=== PATIENT | female | born 1995 | race Caucasian/White ===

== ENCOUNTER → 2016-06-25 14:52 | Outpatient (CLI) | payer OTHER ==
[2015-04-18 21:36] VITALS: BMI 42.8
[~2016-06-25 14:52] MED LIST: IBUPROFEN600 MG PO; PERCOCET 5-3251 TAB PO; PRENATAL COMPLE1 TAB PO
== END | disposition home or self-care (01) ==
LOC: D.RAD 14:52
DX: M54.5 Low back pain (principal)

== ENCOUNTER 2017-01-14 19:31 | Emergency (ER) | payer MEDICAID ==
[2015-04-18 21:36] VITALS: BMI 42.8
[2017-01-14 20:07] LABS: BASOPHILS 0.3 % (0-2); EOSINOPHILS 1.4 % (0-7); HEMATOCRIT 40.8 % (36.0-48.0); HEMOGLOBIN 14.2 g/dL (12-16); IMMATURE GRANULOCYTES 0.3 % (0-5); LYMPHOCYTES 27.4 % (15-50); MCH 29.3 pg (26.0-34.0); MCHC 34.8 g/dL (31.0-37.0); MCV 84.1 fL (80.0-100.0); MEAN PLATELET VOLUME 9.4 fL (7.4-10.4); MONOCYTES 7.9 % (2-11); NEUTROPHILS 62.7 % (40-80); RBC 4.85 10x6/uL (4.00-5.40); RDW 13.2 % (11.5-14.5); WBC 11.1 10x3/uL (4.8-10.8)
[2017-01-14 20:08] LABS: PLATELET COUNT 298 10x3/uL (130-400)
[2017-01-14 20:11] LABS: APPEARANCE CLEAR (CLEAR); BILIRUBIN NEGATIVE (NEGATIVE); COLOR YELLOW (YELLOW); GLUCOSE NEGATIVE (NEGATIVE); KETONE NEGATIVE (NEGATIVE); LEUKOCYTE ESTERASE TRACE (NEGATIVE); NITRITE NEGATIVE (NEGATIVE); PROTEIN NEGATIVE (NEGATIVE); UROBILINOGEN NORMAL (NORMAL)
[2017-01-14 20:13] LABS: BACTERIA MODERATE /hpf (NONE SEEN); EPITHELIAL CELLS 0-5 /hpf (0-5); RED CELLS - URINE 0-5 /hpf (0-5); WHITE CELLS - URINE 0-5 /hpf (0-5)
[2017-01-14 20:24] LABS: ALBUMIN 3.4 g/dL (3.4-5.0); ALKALINE PHOSPHATASE 102 U/L (46-116); ALT (SGPT) 31 U/L (10-68); BILIRUBIN - TOTAL 0.12 mg/dL (0.2-1.3); CALC OSMOLALITY 278 mosm/kg (275-300); CALCIUM 8.7 mg/dL (8.5-10.1); CHLORIDE - SERUM 104 mmol/L (98-107); CREATININE - SERUM 0.9 mg/dL (0.6-1.3); GLUCOSE 101 mg/dL (74-106); POTASSIUM - SERUM 3.9 mmol/L (3.5-5.1); PROTEIN - SERUM 7.3 g/dL (6.4-8.2); SODIUM 140 mmol/L (136-145); UREA NITROGEN 12 mg/dL (7-18); eGFR NON AFRICAN AMERICAN 84 mL/min (90-120)
[2017-01-14 20:30] LABS: HCG - QUANTITATIVE (MATERNAL) 614 mIU/mL
== END 2017-01-14 23:26 | disposition home or self-care (01) ==
LOC: D.ER 19:31
PROVIDERS: Emergency Medicine
DX: O26.899 Other specified pregnancy related conditions, unspecified trimester (principal); Z3A.00 Weeks of gestation of pregnancy not specified; R10.9 Unspecified abdominal pain

== ENCOUNTER 2017-03-05 18:58 | Emergency (ER) | payer MEDICAID ==
[2015-04-18 21:36] VITALS: BMI 42.8
[2017-03-05 19:46] LABS: BASOPHILS 0 % (0-2); EOSINOPHILS 1.1 % (0-7); HEMATOCRIT 38.2 % (36.0-48.0); HEMOGLOBIN 13.1 g/dL (12-16); IMMATURE GRANULOCYTES 0.3 % (0-5); LYMPHOCYTES 25.3 % (15-50); MCH 29.3 pg (26.0-34.0); MCHC 34.3 g/dL (31.0-37.0); MCV 85.5 fL (80.0-100.0); MEAN PLATELET VOLUME 10.4 fL (7.4-10.4); MONOCYTES 6.5 % (2-11); NEUTROPHILS 66.8 % (40-80); RBC 4.47 10x6/uL (4.00-5.40); RDW 13.1 % (11.5-14.5); WBC 9.3 10x3/uL (4.8-10.8)
[2017-03-05 20:03] LABS: PLATELET COUNT 231 10x3/uL (130-400)
[2017-03-05 20:09] LABS: ALBUMIN 2.9 g/dL (3.4-5.0); ALKALINE PHOSPHATASE 83 U/L (46-116); ALT (SGPT) 16 U/L (10-68); CALC OSMOLALITY 277 mosm/kg (275-300); CALCIUM 8.9 mg/dL (8.5-10.1); CARBON DIOXIDE 24.2 mmol/L (21.0-32.0); CHLORIDE - SERUM 105 mmol/L (98-107); CREATININE - SERUM 0.7 mg/dL (0.6-1.3); GLUCOSE 119 mg/dL (74-106); POTASSIUM - SERUM 3.3 mmol/L (3.5-5.1); SODIUM 140 mmol/L (136-145); UREA NITROGEN 6 mg/dL (7-18); eGFR NON AFRICAN AMERICAN > 90 mL/min (90-120)
[2017-03-05 20:10] LABS: APPEARANCE CLEAR (CLEAR); BILIRUBIN NEGATIVE (NEGATIVE); COLOR YELLOW (YELLOW); GLUCOSE 1000 mg/dL (NEGATIVE); KETONE NEGATIVE (NEGATIVE); NITRITE NEGATIVE (NEGATIVE); PROTEIN NEGATIVE (NEGATIVE); UROBILINOGEN NORMAL (NORMAL); WHITE CELLS - URINE 0-5 /hpf (0-5)
[2017-03-05 20:13] LABS: BACTERIA FEW /hpf (NONE SEEN); EPITHELIAL CELLS 0-5 /hpf (0-5)
[2017-03-05 20:22] LABS: BILIRUBIN - TOTAL 0.08 mg/dL (0.2-1.3)
[2017-03-05 20:30] LABS: HCG - QUANTITATIVE (MATERNAL) 103630 mIU/mL
== END 2017-03-05 20:06 | disposition home or self-care (01) ==
LOC: D.ER 18:58
PROVIDERS: Emergency Medicine
DX: O26.891 Other specified pregnancy related conditions, first trimester (principal); Z3A.12 12 weeks gestation of pregnancy; K29.00 Acute gastritis without bleeding; R10.2 Pelvic and perineal pain; O30.001 Twin pregnancy, unspecified number of placenta and unspecified number of amniotic sacs, first trimester

== ENCOUNTER 2017-06-02 22:49 | Outpatient (CLI) | payer MEDICAID ==
[2015-04-18 21:36] VITALS: BMI 42.8
[2017-06-02 23:43] LABS: APPEARANCE HAZY (CLEAR); BILIRUBIN NEGATIVE (NEGATIVE); COLOR DK YELLOW (YELLOW); GLUCOSE 250 mg/dL (NEGATIVE); KETONE NEGATIVE (NEGATIVE); NITRITE NEGATIVE (NEGATIVE); PROTEIN NEGATIVE (NEGATIVE); UROBILINOGEN NORMAL (NORMAL)
[2017-06-03] MEDS ORDERED: LOPRESSOR25 MG (00:49)
[2017-06-03] MEDS ORDERED: antibiotic (00:50)
== END 2017-06-03 06:15 | disposition home or self-care (01) ==
LOC: D.LDO 22:49 → D.LD 22:50 → D.LDO 06-03 06:15
PROVIDERS: Obstetrics & Gynecology
DX: O13.2 Gestational [pregnancy-induced] hypertension without significant proteinuria, second trimester (principal); M54.5 Low back pain; M25.551 Pain in right hip; Z3A.24 24 weeks gestation of pregnancy

== ENCOUNTER 2017-07-16 22:26 | Outpatient (CLI) | payer MEDICAID ==
[2015-04-18 21:36] VITALS: BMI 42.8
[~2017-07-16 22:26] MED LIST changes: +LOPRESSOR25 MG; +antibiotic
== END 2017-07-17 01:20 | disposition other institution (70) ==
LOC: D.LDO 22:26 → D.LD 23:15 → D.LDO 07-17 01:20
DX: O26.893 Other specified pregnancy related conditions, third trimester (principal); Z3A.31 31 weeks gestation of pregnancy; O30.003 Twin pregnancy, unspecified number of placenta and unspecified number of amniotic sacs, third trimester

== ENCOUNTER 2017-08-12 22:21 | Outpatient (CLI) | payer MEDICAID ==
[2015-04-18 21:36] VITALS: BMI 42.8
[2017-08-12 23:34] LABS: HEMATOCRIT 33.6 % (36.0-48.0); HEMOGLOBIN 11.2 g/dL (12-16); MCH 27.4 pg (26.0-34.0); MCHC 33.3 g/dL (31.0-37.0); MCV 82.2 fL (80.0-100.0); RBC 4.09 10x6/uL (4.00-5.40); RDW 18.7 % (11.5-14.5); WBC 7.7 10x3/uL (4.8-10.8)
[2017-08-12 23:40] LABS: CALC OSMOLALITY 279 mosm/kg (275-300); CALCIUM 8.8 mg/dL (8.5-10.1); CARBON DIOXIDE 20.2 mmol/L (21.0-32.0); CHLORIDE - SERUM 106 mmol/L (98-107); CREATININE - SERUM 0.7 mg/dL (0.6-1.3); GLUCOSE 127 mg/dL (74-106); POTASSIUM - SERUM 3.5 mmol/L (3.5-5.1); SODIUM 140 mmol/L (136-145); UREA NITROGEN 9 mg/dL (7-18); URIC ACID 4.3 mg/dL (2.6-7.2); eGFR NON AFRICAN AMERICAN > 90 mL/min (90-120)
[2017-08-12 23:42] LABS: APPEARANCE CLOUDY (CLEAR); BILIRUBIN NEGATIVE (NEGATIVE); COLOR YELLOW (YELLOW); GLUCOSE 250 mg/dL (NEGATIVE); KETONE NEGATIVE (NEGATIVE); NITRITE NEGATIVE (NEGATIVE); PROTEIN 1+ mg/dL (NEGATIVE); SPECIFIC GRAVITY 1.025 (1.005-1.020); UROBILINOGEN NORMAL (NORMAL)
[2017-08-12 23:44] LABS: EPITHELIAL CELLS 0-5 /hpf (0-5); WHITE CELLS - URINE 0-5 /hpf (0-5)
[2017-08-12 23:45] LABS: BACTERIA MODERATE /hpf (NONE SEEN); MUCUS <1+ /lpf (NONE SEEN)
== END 2017-08-13 00:27 | disposition home or self-care (01) ==
LOC: OBSVTIME → D.LDO 22:21 → D.LD 23:30 → OBSVTIME 23:30 → D.LD 23:30 → D.LDO 23:30
PROVIDERS: Obstetrics & Gynecology
DX: O26.893 Other specified pregnancy related conditions, third trimester (principal); Z3A.34 34 weeks gestation of pregnancy

== ENCOUNTER 2018-06-16 18:38 | Emergency (ER) | payer MEDICAID ==
[~2018-06-16] VITALS: Ht 167.6 cm; Wt 99.8 kg
[2018-06-16 18:45] VITALS: Ht 167.6 cm; Wt 99.8 kg
[2018-06-16 19:48] LABS: ALBUMIN 3.6 g/dL (3.4-5.0); ALKALINE PHOSPHATASE 92 U/L (46-116); ALT (SGPT) 27 U/L (10-68); BILIRUBIN - TOTAL 0.49 mg/dL (0.2-1.3); CALC OSMOLALITY 274 mosm/kg (275-300); CALCIUM 8.2 mg/dL (8.5-10.1); CARBON DIOXIDE 21.3 mmol/L (21.0-32.0); CHLORIDE - SERUM 102 mmol/L (98-107); CREATININE - SERUM 0.8 mg/dL (0.6-1.3); GLUCOSE 108 mg/dL (74-106); POTASSIUM - SERUM 3.2 mmol/L (3.5-5.1); PROTEIN - SERUM 7.7 g/dL (6.4-8.2); SODIUM 137 mmol/L (136-145); UREA NITROGEN 12 mg/dL (7-18); eGFR NON AFRICAN AMERICAN > 90 mL/min (90-120)
[2018-06-16 19:50] LABS: BASOPHILS 0.1 % (0-2); EOSINOPHILS 0.3 % (0-7); HEMATOCRIT 45.6 % (36.0-48.0); HEMOGLOBIN 15.5 g/dL (12-16); IMMATURE GRANULOCYTES 0.4 % (0-5); LYMPHOCYTES 10.8 % (15-50); MCH 28.4 pg (26.0-34.0); MCV 83.5 fL (80.0-100.0); MEAN PLATELET VOLUME 10.2 fL (7.4-10.4); MONOCYTES 6.9 % (2-11); NEUTROPHILS 81.5 % (40-80); PLATELET COUNT 303 10x3/uL (130-400); RBC 5.46 10x6/uL (4.00-5.40); RDW 13.5 % (11.5-14.5); WBC 12.5 10x3/uL (4.8-10.8)
[2018-06-16] MEDS ORDERED: ZOFRAN8 MG PO (20:52)
[2018-06-16] MEDS ORDERED: LOMOTIL 2.5-0.1 EAC1 PO (20:52)
[2018-06-16 21:16] VITALS: BP 140/78
== END 2018-06-16 21:16 | disposition home or self-care (01) ==
LOC: D.ER 18:38
PROVIDERS: Family Medicine
DX: A08.4 Viral intestinal infection, unspecified (principal); I10 Essential (primary) hypertension

== ENCOUNTER 2019-01-03 20:17 | Emergency (ER) | payer MEDICAID ==
[~2019-01-03] VITALS: Ht 167.6 cm; Wt 118.5 kg
[~2019-01-03 20:17] MED LIST changes: +LOMOTIL 2.5-0.1 EAC1 PO; +ZOFRAN8 MG PO
[2019-01-03 20:31] VITALS: Ht 167.6 cm; Wt 118.5 kg
[2019-01-03] MEDS ORDERED: BYSTOLIC2.5 MG PO (20:34)
[2019-01-03] MEDS ORDERED: ADDERALL 20 MG20 M1 PO (20:35)
[2019-01-03] MEDS ORDERED: HYDROCODONE-A1 UDTA2 PO (20:35)
[2019-01-03] MEDS ORDERED: LATUDA40 MG PO (20:35)
[2019-01-03] MEDS ORDERED: PROZAC20 MG PO (20:35)
[2019-01-03 21:04] LABS: BASOPHILS 0.1 % (0-2); EOSINOPHILS 0.5 % (0-7); HEMATOCRIT 38.8 % (36.0-48.0); HEMOGLOBIN 13.3 g/dL (12-16); IMMATURE GRANULOCYTES 0.3 % (0-5); MCH 29.2 pg (26.0-34.0); MCHC 34.3 g/dL (31.0-37.0); MCV 85.3 fL (80.0-100.0); MEAN PLATELET VOLUME 9.8 fL (7.4-10.4); MONOCYTES 9.7 % (2-11); NEUTROPHILS 76.4 % (40-80); PLATELET COUNT 291 10x3/uL (130-400); RBC 4.55 10x6/uL (4.00-5.40); RDW 12.8 % (11.5-14.5); WBC 14.4 10x3/uL (4.8-10.8)
[2019-01-03 21:17] LABS: ALBUMIN 2.9 g/dL (3.4-5.0); ANION GAP 11.4 mmol/L (8-16); BILIRUBIN - TOTAL 0.48 mg/dL (0.2-1.3); CALCIUM 8.8 mg/dL (8.5-10.1); CARBON DIOXIDE 28.3 mmol/L (21.0-32.0); CREATININE - SERUM 1.1 mg/dL (0.6-1.3); POTASSIUM - SERUM 3.7 mmol/L (3.5-5.1); PROTEIN - SERUM 7.1 g/dL (6.4-8.2)
[2019-01-03 21:51] LABS: APPEARANCE HAZY (CLEAR); COLOR YELLOW (YELLOW); HCG URINE NEGATIVE (NEGATIVE)
[2019-01-03 21:52] LABS: BACTERIA FEW /hpf (NONE SEEN); BILIRUBIN NEGATIVE (NEGATIVE); EPITHELIAL CELLS 0-5 /hpf (0-5); GLUCOSE NEGATIVE (NEGATIVE); KETONE NEGATIVE (NEGATIVE); NITRITE POSITIVE (NEGATIVE); PROTEIN 1+ mg/dL (NEGATIVE); SPECIFIC GRAVITY 1.015 (1.005-1.020); UROBILINOGEN NORMAL (NORMAL)
[2019-01-03] MEDS ORDERED: SULFAMETHOXAZOL1 TA2 PO (22:03)
[2019-01-03 22:30] VITALS: BP 122/85
== END 2019-01-03 22:30 | disposition home or self-care (01) ==
LOC: D.ER 20:17
PROVIDERS: Family Medicine
DX: T14.8XXA Other injury of unspecified body region, initial encounter (principal); Y04.2XXA Assault by strike against or bumped into by another person, initial encounter; Y93.89 Activity, other specified; Y92.89 Other specified places as the place of occurrence of the external cause; N20.1 Calculus of ureter; N39.0 Urinary tract infection, site not specified

== ENCOUNTER → 2019-07-21 10:06 | Outpatient (CLI) | payer MEDICAID ==
[2019-01-03 20:31] VITALS: BMI 42.2
[~2019-07-21 10:06] MED LIST changes: +ADDERALL 20 MG20 M1 PO; +BYSTOLIC2.5 MG PO; +HYDROCODONE-A1 UDTA2 PO; +LATUDA40 MG PO; +PROZAC20 MG PO; +SULFAMETHOXAZOL1 TA2 PO
== END | disposition home or self-care (01) ==
LOC: D.MRI 10:06
PROVIDERS: ATTEND Registered Nurse Emergency
DX: M51.26 Other intervertebral disc displacement, lumbar region (principal)